=== PATIENT | male | born 1975 | race Caucasian/White ===

== ENCOUNTER 2016-08-03 10:33 | Inpatient (IN) | payer BC ==
--- NOTE | ~2016-08-03 | HP ---
History And Physical [place] [id number] [facility] [place]. [address] NAME: JARET ANDINO : 73 STATUS : ADM IN [facility]#: [id number] AGE: 41 ADM/REG DATE : 08/03/16 MR#: [id number] REPORT SERV DATE: 08/03/16 DICTATED BY: JUSTUS BUTLER DATE: 08/03/16 REPORT STATUS : Draft TRANSCRIBED BY: MODL DATE: 08/03/16 DATE OF ADMISSION: 08/03/2016 REFERRING PHYSICIAN: Dr. Jacqueline Patel. HISTORY OF PRESENT ILLNESS: Mr. Jaret Andino is a 41-year-old gentleman with past medical history significant for idiopathic hereditary angioedema, followed by Dr. Hatch [facility] and Dr. Palacios at [place]. He presented to the [facility] complaining of substernal chest pain in the subxiphoid region. He reports that this is worse with a deep breath. He reports that position otherwise is not affected. He denies any radiation, shortness of breath, nausea or diaphoresis. REVIEW OF SYSTEMS: The patient reports he has had this intermittent chest pain on multiple occasions over the last two to three months. It is not related to any activity. He denies any gastrointestinal, genitourinary, neurologic, or respiratory complaints. He reports that his angioedema has been well controlled since being treated. PAST MEDICAL HISTORY: As noted above, significant for hereditary angioedema diagnosed earlier this year. The patient underwent a prophylactic tracheotomy earlier this year secondary to repeated episodes of facial angioedema and concerns for his airway. He is status post previous appendectomy and cholecystectomy. He has had previous back and elbow surgery. FAMILY HISTORY: Negative for coronary artery disease. SOCIAL HISTORY: The patient has not smoked. PHYSICAL EXAMINATION: VITAL SIGNS: Blood pressure now 138/70, pulse 76, respiratory rate 18. GENERAL: This is was well-developed and well-nourished 41-year-old white male, alert and oriented x3, in no acute distress. NECK: No jugular venous distention, hepatojugular reflux, or carotid bruits. Tracheotomy is in position. CARDIOVASCULAR: Normal rate with regular rhythm. No murmur, gallop, click, or rub. LUNGS: Clear to auscultation without wheezes, rales, or rhonchi. ABDOMEN: Soft, nontender, and nondistended. Positive bowel sounds. EXTREMITIES: Without clubbing, cyanosis, or edema. NEUROLOGIC: Grossly nonfocal. IMAGING: EKG shows normal sinus rhythm with delayed R-wave progression. Qs are noted in 3 and AVF. There is no acute injury or ischemia pattern. The troponin from the [facility] was negative. ASSESSMENT: History And Physical [address] [place]. [address] NAME: JARET ANDINO : [birth year] STATUS : ADM IN PAT#: [id number] AGE: 41 ADM/REG DATE : 08/03/16 MR#: [id number] REPORT SERV DATE: 08/03/16 DICTATED BY: JUSTUS BUTLER DATE: 08/03/16 REPORT STATUS : Draft TRANSCRIBED BY: NARINDER DATE: 08/03/16 1. Chest pain-pleuritic. 2. Hypertension. 3. Hereditary angioedema. PLAN: 1. See orders to include the addition of Cardizem CD for better blood pressure control. Will use p.r.n. clonidine as well. 2. Check echocardiogram in this patient with pleuritic chest pain. 3. Nuclear stress test. 4. Continue preadmission medications, which are alprazolam, gabapentin, oxycodone, and albuterol inhaler. /NARINDER Justus Butler M.D., [facility] / [id number] CC: Justus Butler M.D., [facility] UNKNOWN Tomás Hatch M.D.
[~2016-08-03 10:33] MED LIST: BENICAR; BENICAR20 PO; BENICAR40 PO; BENICAR5 PO; BENTYL10 PO; CLEOCIN300 MG PO; EPIPEN0.3; METHOC500B PO; NEUR300 PO; OXYCOD PO; PCET PO; PROTONIX PO; VITAMIN E; VITE PO; ZYRTEC ALLGY10 MG PO; [UNRECOGNIZED DRUG - OTHER] PO
[2016-08-03] MEDS ORDERED: ALBUTEROL5 INH (10:59)
[2016-08-03] MEDS ORDERED: X25 PO (10:59)
[2016-08-03] MEDS ORDERED: OXYCOD PO (11:00)
[2016-08-03 11:37] LABS: BASOPHILS 0.1 %; BASOPHILS ABSOLUTE 0.01 10/3/uL (0.0-0.16); EOSINOPHILS 0.1 %; EOSINOPHILS ABSOLUTE 0.01 10/3/uL (0.0-0.53); HEMATOCRIT 49.8 % (40.0-51.0); HEMOGLOBIN 17.3 g/dL (13.6-17.8); IMMATURE GRANULOCYTES 0.3 %; IMMATURE GRANULOCYTES ABSOLUTE 0.02 10/3/uL (0.0-0.11); LYMPHOCYTES 9.8 %; LYMPHOCYTES ABSOLUTE 0.77 10/3/uL (0.67-4.30); MEAN CORPUS HGB CONC 34.7 g/dL (32.0-36.0); MEAN CORPUSCULAR HEMOGLOB 30.1 pg (26.0-34.0); MEAN CORPUSCULAR VOLUME 86.8 fL (80-100); MEAN PLATELET VOLUME 9.5 fL (9.2-13.0); MONOCYTES 1.1 %; MONOCYTES ABSOLUTE 0.09 10/3/uL (0.21-1.20); NEUTROPHILS 88.6 %; NEUTROPHILS ABSOLUTE 6.97 10/3/uL (2.02-8.40); PLATELET COUNT 272 10/3/uL (150-400); RBC DISTRIBUTION WIDTH 13.3 % (12.0-16.0); RED CELL COUNT 5.74 10/6/uL (4.7-6.1); WHITE BLOOD CELLS 7.9 10/3/uL (4.5-10.5)
[2016-08-03 11:38] LABS: MANUAL DIFF NO %
[2016-08-03 11:44] LABS: PARTIAL THROMBO TIME 27.5 SEC (22.5-37.2); PROTIME (NOT ORD) 13.5 SEC (12.0-14.5)
[2016-08-03 11:54] LABS: ALBUMIN 3.8 G/DL (3.5-5.0); BUN (BLOOD UREA NITROGEN) 7 MG/DL (6-23); CALCIUM, SERUM 9.3 MG/DL (8.5-10.4); CHLORIDE, SERUM 106 MMOL/L (96-112); CO2 (CARBON DIOXIDE) 26 MMOL/L (24-34); CREATININE 0.89 MG/DL (0.70-1.30); GFR AFRICAN AMERICAN 122 ML/MIN (>=60); GFR NON AFRICAN AMERICAN 105 ML/MIN (>=60); GLUCOSE, SERUM 152 MG/DL (60-99); PHOSPHORUS, SERUM 2.1 MG/DL (2.5-4.5); POTASSIUM, SERUM 4.2 MMOL/L (3.5-5.3); SODIUM, SERUM 138 MMOL/L (135-148); TROPONIN I <0.02 NG/ML (<0.05)
[2016-08-03 17:05] LABS: BASOPHILS 0 %; EOSINOPHILS 0 %; HEMATOCRIT 49.5 % (40.0-51.0); HEMOGLOBIN 16.9 g/dL (13.6-17.8); IMMATURE GRANULOCYTES 0.2 %; IMMATURE GRANULOCYTES ABSOLUTE 0.02 10/3/uL (0.0-0.11); LYMPHOCYTES 8.9 %; LYMPHOCYTES ABSOLUTE 0.75 10/3/uL (0.67-4.30); MEAN CORPUS HGB CONC 34.1 g/dL (32.0-36.0); MEAN CORPUSCULAR HEMOGLOB 29.9 pg (26.0-34.0); MEAN CORPUSCULAR VOLUME 87.5 fL (80-100); MEAN PLATELET VOLUME 9.5 fL (9.2-13.0); MONOCYTES 2.1 %; MONOCYTES ABSOLUTE 0.18 10/3/uL (0.21-1.20); NEUTROPHILS 88.8 %; NEUTROPHILS ABSOLUTE 7.46 10/3/uL (2.02-8.40); PLATELET COUNT 260 10/3/uL (150-400); RBC DISTRIBUTION WIDTH 13.5 % (12.0-16.0); RED CELL COUNT 5.66 10/6/uL (4.7-6.1); WHITE BLOOD CELLS 8.4 10/3/uL (4.5-10.5)
[2016-08-03 17:12] LABS: MANUAL DIFF NO %
[2016-08-03 17:19] LABS: BUN (BLOOD UREA NITROGEN) 8 MG/DL (6-23); CALCIUM, SERUM 9.5 MG/DL (8.5-10.4); CHLORIDE, SERUM 105 MMOL/L (96-112); CO2 (CARBON DIOXIDE) 27 MMOL/L (24-34); CREATININE 1.02 MG/DL (0.70-1.30); GFR AFRICAN AMERICAN 105 ML/MIN (>=60); GFR NON AFRICAN AMERICAN 90 ML/MIN (>=60); GLUCOSE, SERUM 175 MG/DL (60-99); PARTIAL THROMBO TIME 25.9 SEC (22.5-37.2); POTASSIUM, SERUM 4.3 MMOL/L (3.5-5.3); PROTIME (NOT ORD) 13.2 SEC (12.0-14.5); SODIUM, SERUM 137 MMOL/L (135-148); TROPONIN I <0.02 NG/ML (<0.05)
[2016-08-04 07:00] LABS: BASOPHILS 0.1 %; BASOPHILS ABSOLUTE 0.02 10/3/uL (0.0-0.16); EOSINOPHILS 0.3 %; EOSINOPHILS ABSOLUTE 0.04 10/3/uL (0.0-0.53); HEMATOCRIT 46.8 % (40.0-51.0); HEMOGLOBIN 16.1 g/dL (13.6-17.8); IMMATURE GRANULOCYTES 0.5 %; IMMATURE GRANULOCYTES ABSOLUTE 0.07 10/3/uL (0.0-0.11); LYMPHOCYTES 16.6 %; LYMPHOCYTES ABSOLUTE 2.49 10/3/uL (0.67-4.30); MEAN CORPUS HGB CONC 34.4 g/dL (32.0-36.0); MEAN CORPUSCULAR VOLUME 87.2 fL (80-100); MEAN PLATELET VOLUME 9.4 fL (9.2-13.0); MONOCYTES 5.1 %; MONOCYTES ABSOLUTE 0.77 10/3/uL (0.21-1.20); NEUTROPHILS 77.4 %; NEUTROPHILS ABSOLUTE 11.57 10/3/uL (2.02-8.40); PLATELET COUNT 258 10/3/uL (150-400); RBC DISTRIBUTION WIDTH 13.2 % (12.0-16.0); RED CELL COUNT 5.37 10/6/uL (4.7-6.1)
[2016-08-04 07:04] LABS: MANUAL DIFF NO %
[2016-08-04 16:34] LABS: ASCORBIC ACID (UR NOT ORDER) NEG (NEG); BILIRUBIN, URINE NEGATIVE (NEG); KETONE, URINE NEGATIVE (NEG); LEUKOCYTE ESTERASE(NOT OR NEG (NEG); WBC (NOT ORDERED) (RFLEX) 1 (0-5)
[2016-08-05 03:37] LABS: BASOPHILS 0.2 %; BASOPHILS ABSOLUTE 0.02 10/3/uL (0.0-0.16); EOSINOPHILS 1.1 %; HEMATOCRIT 46.1 % (40.0-51.0); HEMOGLOBIN 15.8 g/dL (13.6-17.8); IMMATURE GRANULOCYTES 0.2 %; IMMATURE GRANULOCYTES ABSOLUTE 0.02 10/3/uL (0.0-0.11); LYMPHOCYTES 34.9 %; LYMPHOCYTES ABSOLUTE 3.23 10/3/uL (0.67-4.30); MEAN CORPUS HGB CONC 34.3 g/dL (32.0-36.0); MEAN CORPUSCULAR HEMOGLOB 29.5 pg (26.0-34.0); MEAN CORPUSCULAR VOLUME 86.2 fL (80-100); MEAN PLATELET VOLUME 9.3 fL (9.2-13.0); MONOCYTES 7.7 %; MONOCYTES ABSOLUTE 0.71 10/3/uL (0.21-1.20); NEUTROPHILS 55.9 %; NEUTROPHILS ABSOLUTE 5.18 10/3/uL (2.02-8.40); PLATELET COUNT 252 10/3/uL (150-400); RBC DISTRIBUTION WIDTH 13.6 % (12.0-16.0); RED CELL COUNT 5.35 10/6/uL (4.7-6.1); WHITE BLOOD CELLS 9.3 10/3/uL (4.5-10.5)
[2016-08-05 03:39] LABS: MANUAL DIFF NO %
[2016-08-05 03:49] LABS: CHLORIDE, SERUM 102 MMOL/L (96-112); CREATININE 0.86 MG/DL (0.70-1.30); GFR AFRICAN AMERICAN 124 ML/MIN (>=60); GFR NON AFRICAN AMERICAN 107 ML/MIN (>=60); POTASSIUM, SERUM 3.9 MMOL/L (3.5-5.3); SODIUM, SERUM 138 MMOL/L (135-148)
[2016-08-05 03:50] LABS: BUN (BLOOD UREA NITROGEN) 14 MG/DL (6-23); CALCIUM, SERUM 8.3 MG/DL (8.5-10.4); CO2 (CARBON DIOXIDE) 32 MMOL/L (24-34); GLUCOSE, SERUM 87 MG/DL (60-99)
[2016-08-05] MEDS ORDERED: CARDCD240 PO (18:08)
[2016-08-05] MEDS ORDERED: PROTONIX PO (18:09)
[2016-08-05] MEDS ORDERED: IBU400 (18:12)
== END 2016-08-05 21:17 | disposition home or self-care (01) | DRG 313 ==
LOC: 7NO 10:33
PROVIDERS: Internal Medicine Interventional Cardiology
DX: R07.89 Other chest pain (principal); D84.1 Defects in the complement system; I10 Essential (primary) hypertension; F17.210 Nicotine dependence, cigarettes, uncomplicated; Z90.49 Acquired absence of other specified parts of digestive tract
CPT/HCPCS: 71020; 78452; 80048; 80061; 80069; 81001; 83735; 84145; 84460; 84484; 85025; 85610; 85730; 93005; 93017; 93306; A9270-GY; A9502; J0153; J1170; J1885; J2405